=== PATIENT | female | born 1980 | race American Indian/Alaskan Native ===

== ENCOUNTER 2017-04-22 14:38 | Emergency (ER) | payer OTHER ==
[2017-04-22 14:51] VITALS: BP 128/77
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
--- NOTE | 2017-04-22 17:38 | XRay Report ---
FINAL REPORT EXAM: XR SPINE LUMBOSACRAL 2-3V HISTORY: pain/LUMBAR COMPARISON: None available. FINDINGS: Three views of the lumbar spine obtained. Lumbar vertebral body heights and disc heights are preserved. Pedicles are intact. No spondylolisthesis. Mild levoconvex curvature. IMPRESSION: Lumbar vertebral body heights and disc heights are preserved. Mild levoconvex curvature.
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
== END 2017-04-22 18:53 | disposition home or self-care (01) ==
LOC: ED 14:38
DX: M54.5 Low back pain (principal)
CPT/HCPCS: 72100